=== PATIENT | male | born 1975 ===

== ENCOUNTER 2017-03-31 11:37 | Observation (INO) | payer MEDICAID ==
[2017-03-31 11:38] VITALS: BMI 16.6
[2017-03-31 13:26] LABS: BASO # 0.1 K/uL (0.0-0.2); BASO % 0.7 % (0.0-2.0); EOS % 0.3 % (0.0-4.0); HEMOGLOBIN 15.9 g/dL (12.0-18.0); LYMPH # 2.5 K/uL (1.0-4.3); LYMPH % 32.2 % (20.0-40.0); MEAN CELL VOLUME 81.7 fl (80.0-94.0); MEAN CORPUSCULAR HEMOGLOBIN 25.5 pg (27.0-31.0); MEAN CORPUSCULAR HGB CONC 31.2 g/dL (33.0-37.0); MEAN PLATELET VOLUME 11.7 fl (7.2-11.7); MONO # 0.3 K/uL (0.0-0.8); MONO % 3.4 % (0.0-10.0); NEUT # 4.9 K/uL (1.8-7.0); NEUT % 63.4 % (50.0-75.0); NRBC % 0.1 % (0.0-0.0); RBC 6.25 Mil/uL (4.40-5.90); WHITE BLOOD COUNT 7.8 K/uL (4.8-10.8)
--- NOTE | 2017-03-31 13:30 | RAD ---
HISTORY: fever COMPARISON: No prior. TECHNIQUE: Chest PA and lateral FINDINGS: Limited evaluation LUNGS: No active pulmonary disease. PLEURA: No significant pleural effusion identified. No pneumothorax apparent. CARDIOVASCULAR: Normal. OSSEOUS STRUCTURES: Demonstrate thoracic kyphosis thoracic cage deformity. Scoliosis. No obvious fracture. VISUALIZED UPPER ABDOMEN: Normal. OTHER FINDINGS: None. IMPRESSION: No active disease.
[2017-03-31] MEDS: Sodium Chloride 0.9% 1,000 ML IV SCH ×2 (13:31→18:44)
[2017-03-31 14:04] LABS: ALB/GLOB RATIO 1.3 (1.0-2.1); ALBUMIN 4.6 g/dL (3.5-5.0); ALT/SGPT 44 U/L (21-72); AST/SGOT 39 U/L (17-59); BLOOD UREA NITROGEN 43 mg/dl (9-20); CALCIUM 9.7 mg/dL (8.4-10.2); GFR AFRICAN-AMERICAN > 60; GFR NON-AFRICAN AMERICAN 55
--- NOTE | 2017-03-31 14:12 | ED PDOC ---
HPI: General Adult Time Seen by Provider: 03/31/17 12:04 Chief Complaint (Nursing): Dental Pain Chief Complaint (Provider): Fever History Per: Patient History/Exam Limitations: no limitations Onset/Duration Of Symptoms: Days (x 2) Additional History Per: Family (mother) Additional Complaint(s): Patient with cerebral palsy brought in by mother for fever for the past 2 days. Mother is primary hypercil core transformer assembler and gave him antipyretics with no relief. She also thinks his mouth is dry and is concerned about mouth sores. Otherwise: (-) cough , (-) rash, (-) nausea, (-) vomiting, (-) diarrhea. PMD: None Provided Past Medical History Reviewed: Historical Data, Nursing Documentation, Vital Signs Vital Signs: Last Vital Signs Temp 98.6 F 03/31/17 13:31 Pulse 110 H 03/31/17 11:59 Resp BP 142/84 03/31/17 11:59 Pulse Ox 98 03/31/17 14:17 - Medical History Other PMH: cerebral palsy - Family History Family History: States: Unknown Family Hx - Immunization History Hx Tetanus Toxoid Vaccination: No Hx Influenza Vaccination: No Hx Pneumococcal Vaccination: No - Home Medications Home Medications: Ambulatory Orders Medication Instructions Recorded hydrOXYzine Pamoate [Vistaril] 50 mg PO QN 02/01/16 - Allergies Allergies/Adverse Reactions: Allergies Allergy/AdvReac Type Severity Reaction Status Date / Time No Known Allergies Allergy Verified 02/01/16 22:48 Review of Systems ROS Statement: Except As Marked, All Systems Reviewed And Found Negative Constitutional: Positive for: Fever ENT: Positive for: Other (dry mouth) Respiratory: Negative for: Cough Gastrointestinal: Negative for: Nausea, Vomiting, Diarrhea Skin: Negative for: Rash Physical Exam - Reviewed Nursing Documentation Reviewed: Yes Vital Signs Reviewed: Yes - Physical Exam Comments: GENERAL APPEARANCE: Patient is awake, alert, in no acute distress. Patient is nonverbal SKIN: Warm, dry; (-) cyanosis, (-) rash. (-) Decubitus Ulcer EYES: (-) conjunctival pallor, (-) scleral icterus, (-) conjunctival hemorrhage. ENMT: Mucous membranes dry. TMs: (-) erythema. Airway patent: (-) stridor. Pharynx: (-) erythema, (-) exudate. NECK: (-) tenderness, (-) stiffness, (-) meningismus, (-) lymphadenopathy. CHEST AND RESPIRATORY: (-) accessory muscle use. Lungs: (-) rales, (-) rhonchi, (-) wheezes, (-) rub; breath sounds equal bilaterally. HEART AND CARDIOVASCULAR: (-) irregularity; (-) murmur, (-) gallop, (-) rub. ABDOMEN AND GI: Soft; (-) tenderness, (-) guarding; (-) organomegaly; (-) mass ; (-) CVA tenderness. EXTREMITIES: (-) deformity; (-) cellulitis, (-) lymphangitis; (-) subungual hemorrhage; (-) edema. NEURO AND PSYCH: Mental status as above; (-) focal findings. - Laboratory Results Result Diagrams: 03/31/17 13:15 03/31/17 13:15 - ECG O2 Sat by Pulse Oximetry: 98 (RA) Pulse Ox Interpretation: Normal Medical Decision Making Medical Decision Making: Time: 12:45 --CMP --CBC --Chest XR --IV Fluids - NS --Flu Swab Reevaluation: --Mother refusing urinalysis, urine bag to be applied, or urinary catheterization. She was informed benefits of tests for UTI because patient has fever with unknown source. She understands the benefits and risks and is still refusing. CXR : NAD, as read by MARIBELL Hollins flu : (-) Labs reviewed : NA is 170. Pickling Drum Operator notified of diagnosis of hypernatremia, likely due to dehydration ( hypovolemic hyponatremia), NS bolus d/c. ER MD notified. Case d/w hospitalist Dr. Vilchis, agrees with disposition, request Dr. Martinez be called for consult. Dr. Archer called and case discussed, she recommends to d/c NS and to give D5 water 50cc/hr and to repeat BMP q12h. Pickling Drum Operator states she fully agrees with and understands further plan and care. I have given the hypercil core transformer assembler opportunity to ask any additional questions. Scribe Attestation: Documented by Florencio Cortez, acting as a scribe for Zenaida Tesfaye PA-C Provider Scribe Attestation: All medical record entries made by the Scribe were at my direction and personally dictated by me. I have reviewed the chart and agree that the record accurately reflects my personal performance of the history, physical exam, medical decision making, and the department course for this patient. I have also personally directed, reviewed, and agree with the discharge instructions and disposition. Disposition - Clinical Impression Clinical Impression: Hypernatremia - Patient ED Disposition Is Patient to be Admitted: Yes Counseled Patient/Family Regarding: Studies Performed, Diagnosis - Disposition Disposition Time: 15:30 Condition: FAIR - PA / COST COORDINATOR / Resident Statement MD/DO has reviewed & agrees with the documentation as recorded.
[2017-03-31] MEDS ORDERED: Sodium Chloride 0.45% 500ml 1,000 ML IV SCH (15:45)
--- NOTE | 2017-03-31 17:32 | CP.PCM.HP ---
History of Present Illness - History of Present Illness History of Present Illness: This is a 42 year old male with a past medical history of cerebral palsy, with no other reported medical problems, who was brought in by his mother due to fever for the past 2 days. She states that she has been giving him antipyretics without relief. Denies any nausea, vomiting, diarrhea. In the ED, he was noted to be afebrile. However, upon obtaining labwork, he was noted to have a significant hypernatremia of 170 and hyperchloremia of 127. Also elevated BUN of 43 and creatinine of 1.4. Upon further investiagation the mother reports very poor po intake. He refuses to eat anything but oatmeal and rice pudding. Given his significant electrolyte abnormalities, the patient is to be placed on observation for fluid resuscitation. Dr. Archer, nephrology, was called and recommends D5W at 50 cc/hour which was initialized and will be continued overnight. Patient unable to provide hx due to cerebral palsy and mental retardation. Present on Admission - Present on Admission Any Indicators Present on Admission: No Review of Systems - Review of Systems Review of Systems: a 12 point ROS was conducted with the mother and found to be negative other than what was stated in the HPI Past Patient History - Infectious Disease Hx of Infectious Diseases: None - Past Medical History & Family History Past Medical History?: Yes - Past Social History Smoking Status: Never Smoked Alcohol: None Drugs: Denies Home Situation {Lives}: With Family - NEUROLOGICAL Other/Comment: cerebral palsy - PSYCHIATRIC Hx Substance Use: No - SURGICAL HISTORY Hx Surgeries: No - ANESTHESIA Hx Anesthesia: No Meds Allergies/Adverse Reactions: Allergies Allergy/AdvReac Type Severity Reaction Status Date / Time No Known Allergies Allergy Verified 02/01/16 22:48 Physical Exam - Additional Findings Additional findings: Physical exam: Constitutional- awake, alert, nonverbal, mental retardation, cachectic male Head- NCAT, PERRL Eye- PERRL, EOMI ENT- normal exam, MMM. Neck- normal inspection, supple, no JVD Respiratory- CTAB, no wheezes rales rhonchi Cardiovascular- RRR, +S1, +S2 no MRG GI/Abdominal- normal bowel sounds, soft, no mass, no hsm Skin- warm, dry Extremities Exam- normal capillary refill, normal inspection Neurological Exam- alert, awake, not oriented. Moving all 4 extremities Psych- unable to assess. Results - Vital Signs Recent Vital Signs: Last Vital Signs Temp 98.6 F 03/31/17 13:31 Pulse 110 H 03/31/17 11:59 Resp BP 142/84 03/31/17 11:59 Pulse Ox 98 03/31/17 16:34 - Labs Result Diagrams: 03/31/17 13:15 03/31/17 13:15 Labs: Laboratory Results - last 24 hr 03/31/17 03/31/17 03/31/17 13:15 13:15 13:15 WBC 7.8 RBC 6.25 H Hgb 15.9 Hct 51.0 MCV 81.7 MCH 25.5 L MCHC 31.2 L RDW 16.0 H Plt Count 136 MPV 11.7 Neut % (Auto) 63.4 Lymph % (Auto) 32.2 [place] % (Auto) 3.4 Eos % (Auto) 0.3 Baso % (Auto) 0.7 Neut # (Auto) 4.9 Lymph # (Auto) 2.5 [place] # (Auto) 0.3 Eos # (Auto) 0.0 Baso # (Auto) 0.1 Sodium 170 H* Potassium 3.9 Chloride 127 H Carbon Dioxide 28 Anion Gap 19 BUN 43 H Creatinine 1.4 Est GFR ( Amer) > 60 Est GFR (Non-Af Amer) 55 Random Glucose 112 H Calcium 9.7 Total Bilirubin 0.6 AST 39 ALT 44 Alkaline Phosphatase 53 Total Protein 8.3 H Albumin 4.6 Globulin 3.7 Albumin/Globulin Ratio 1.3 Influenza Typ A,B (EIA) Negative for flu a/b Assessment & Plan - Assessment and Plan (Free Text) Plan: ASSESSMENT/PLAN 1) hypernatremia of 170, hyperchloremia of 127, due to significant dehydration from poor po intake - Observation on telemetry - Nephrology consultation with Dr. Gianin haley - Continue D5W at 50 cc/hour for correction overnight - BMP q 12 hours - F/u serum, urine osmolality 2) Cerebral palsy - Fall precautions - Dietary consult due to poor po intake 3) DVT prophylaxis Heparin sq q 12h
[2017-04-01 03:28] VITALS: RESP 17
[2017-04-01 06:45] VITALS: BP 129/81; PULSE 71; TEMP 98.3; O2SAT 96
--- NOTE | 2017-04-01 12:28 | CP.PCM.PN ---
Subjective - Date & Time of Evaluation Date of Evaluation: 04/01/17 Time of Evaluation: 06:15 - Subjective Subjective: AMA: The Patient's mother and brother decided to sign out the patient against medical advice.The risks were explained to the mother in Finnish but she still signed him out. She said that she would call his PMD later in the morning for further advice.. Miguel Anna MD Objective - Vital Signs/Intake and Output Vital Signs (last 24 hours): Temp Pulse Resp BP Pulse Ox 98.3 F 71 17 129/81 96 04/01/17 06:44 04/01/17 06:44 04/01/17 06:44 04/01/17 06:44 04/01/17 06:44 - Labs Labs: 03/31/17 13:15 03/31/17 13:15
== END 2017-04-01 07:00 | disposition left against medical advice (07) ==
LOC: H.ER 11:37 → H.ERHOLD 15:42 → UNDODISOB 04-01 07:00
PROVIDERS: ADMIT Internal Medicine; ATTEND Internal Medicine
DX: E86.0 Dehydration (principal); E87.0 Hyperosmolality and hypernatremia; E87.8 Other disorders of electrolyte and fluid balance, not elsewhere classified; F79 Unspecified intellectual disabilities; G80.9 Cerebral palsy, unspecified; K08.89 Other specified disorders of teeth and supporting structures
CPT/HCPCS: 71046; 80053; 83930; 85025; 87804; 96372; 99284; G0378; J1644; J7040; J7070

== ENCOUNTER 2017-04-03 15:52 | Inpatient (IN) | payer MEDICAID ==
[2017-04-03 15:52] VITALS: BMI 16.6
[2017-04-03] MEDS ORDERED: Acetaminophen 160 mg/5 ml UD PO ONE (16:35)
--- NOTE | 2017-04-03 16:38 | ED PDOC ---
HPI: CCC, URI, Sore Throat Time Seen by Provider: 04/03/17 16:26 Chief Complaint (Nursing): Cough, Cold, Congestion History Per: Family (Fever cough and congestion since thios AM. No vomiting or diarrhea. Pt has CP hx obtained from mother) Past Medical History Vital Signs: Last Vital Signs Temp 102.8 F H 04/03/17 16:25 Pulse 84 04/03/17 16:25 Resp 16 04/03/17 16:25 BP 112/65 04/03/17 16:25 Pulse Ox 95 04/03/17 18:25 - Medical History Other PMH: Cerebral Palsy - Family History Family History: States: Unknown Family Hx - Immunization History Hx Tetanus Toxoid Vaccination: No Hx Influenza Vaccination: No Hx Pneumococcal Vaccination: No - Home Medications Home Medications: Ambulatory Orders Medication Instructions Recorded No Known Home Med 04/03/17 - Allergies Allergies/Adverse Reactions: Allergies Allergy/AdvReac Type Severity Reaction Status Date / Time No Known Allergies Allergy Verified 04/03/17 16:09 Review of Systems ROS Statement: Except As Marked, All Systems Reviewed And Found Negative Constitutional: Positive for: Fever ENT: Positive for: Nose Congestion Respiratory: Positive for: Cough Physical Exam - Reviewed Nursing Documentation Reviewed: Yes Vital Signs Reviewed: Yes - Physical Exam Appears: Positive for: Non-toxic, No Acute Distress Head Exam: Positive for: ATRAUMATIC, NORMAL INSPECTION, NORMOCEPHALIC Skin: Positive for: Normal Color, Warm, DRY Eye Exam: Positive for: EOMI, Normal appearance, PERRL ENT: Positive for: Normal ENT Inspection Neck: Positive for: Normal, Painless ROM Cardiovascular/Chest: Positive for: Regular Rate, Rhythm Respiratory: Positive for: Rhonchi. Negative for: Wheezing, Respiratory Distress Gastrointestinal/Abdominal: Positive for: Normal Exam, Bowel Sounds, Soft Back: Positive for: Normal Inspection Extremity: Positive for: Normal ROM Neurologic/Psych: Positive for: Motor/Sensory Deficits (Contractures upper and lower ext. Alerteness at baseline as per mother) - Laboratory Results Result Diagrams: 04/03/17 17:00 04/03/17 17:00 - ECG O2 Sat by Pulse Oximetry: 95 Disposition - Clinical Impression Clinical Impression: Hypernatremia, Influenza - Patient ED Disposition Is Patient to be Admitted: Yes - Disposition Disposition Time: 18:27 Condition: FAIR Forms: Shustir ([place] Ver[place])
[2017-04-03] MEDS ORDERED: Acetaminophen 160 mg/5 ml UD ONE (17:02)
[2017-04-03 17:29] LABS: VENOUS BLOOD GAS BASE EXCESS 4.1 mmol/L (0.0-2.0); VENOUS BLOOD GAS PCO2 41 mmHg (40-60); VENOUS BLOOD GAS PO2 37 mm/Hg (30-55); VENOUS BLOOD PH 7.45 (7.32-7.43)
[2017-04-03 17:35] LABS: BASO % 0.4 % (0.0-2.0); HEMOGLOBIN 14.4 g/dL (12.0-18.0); LYMPH % 21.5 % (20.0-40.0); MEAN CELL VOLUME 81.7 fl (80.0-94.0); MEAN CORPUSCULAR HEMOGLOBIN 25.2 pg (27.0-31.0); MEAN CORPUSCULAR HGB CONC 30.8 g/dL (33.0-37.0); MEAN PLATELET VOLUME 12.1 fl (7.2-11.7); MONO # 0.3 K/uL (0.0-0.8); MONO % 5.3 % (0.0-10.0); NEUT # 3.5 K/uL (1.8-7.0); NEUT % 72.8 % (50.0-75.0); NRBC % 0.9 % (0.0-0.0); RBC 5.72 Mil/uL (4.40-5.90); RED CELL DISTRIBUTION WIDTH 15.6 % (11.5-14.5); WHITE BLOOD COUNT 4.8 K/uL (4.8-10.8)
[2017-04-03 18:05] LABS: ALB/GLOB RATIO 1.2 (1.0-2.1); ALBUMIN 4.2 g/dL (3.5-5.0); ALT/SGPT 36 U/L (21-72); AST/SGOT 63 U/L (17-59); BLOOD UREA NITROGEN 27 mg/dl (9-20); CALCIUM 9.1 mg/dL (8.4-10.2); GFR AFRICAN-AMERICAN > 60; GFR NON-AFRICAN AMERICAN > 60
[2017-04-03] MEDS ORDERED: Oseltamivir 6 MG/ML PO STA (18:31)
--- NOTE | 2017-04-03 19:54 | CP.PCM.HP ---
History of Present Illness - History of Present Illness History of Present Illness: 42 yo mentally retarded, bed ridden and non-conversant since brought by mother because of fever of 3 days duration. He was found to be hypernatremic and was admitted. He was vigorously hydrated but when they could not get a bed upstairs, mother signed him out AMA. Today he was brought back because of the persistent fever and coughing. Present on Admission - Present on Admission Any Indicators Present on Admission: No History of DVT/PE: No History of Uncontrolled Diabetes: No Urinary Catheter: No Decubitus Ulcer Present: No Review of Systems - Review of Systems Systems not reviewed;Unavailable: Other (unable to converse because of severe mental retardation) Past Patient History - Infectious Disease Hx of Infectious Diseases: None - Past Medical History & Family History Past Medical History?: Yes - Past Social History Smoking Status: Never Smoked Home Situation {Lives}: With Family - NEUROLOGICAL Other/Comment: cerebral palsy - PSYCHIATRIC Hx Substance Use: No - SURGICAL HISTORY Hx Surgeries: No - ANESTHESIA Hx Anesthesia: No Meds Allergies/Adverse Reactions: Allergies Allergy/AdvReac Type Severity Reaction Status Date / Time No Known Allergies Allergy Verified 04/03/17 16:09 Physical Exam - Constitutional Appears: No Acute Distress, Cachectic, Chronically Ill - Head Exam Head Exam: ATRAUMATIC - Eye Exam Eye Exam: absent: Scleral icterus - ENT Exam ENT Exam: Mucous Membranes Dry - Respiratory Exam Respiratory Exam: absent: Rhonchi, Wheezes, Respiratory Distress - Cardiovascular Exam Cardiovascular Exam: REGULAR RHYTHM, +S1, +S2 - GI/Abdominal Exam GI & Abdominal Exam: Soft. absent: Tenderness - Rectal Exam Rectal Exam: Deferred - Psychiatric Exam Psychiatric exam: Flat Affect - Skin Skin Exam: Dry, Intact Results - Vital Signs Recent Vital Signs: Last Vital Signs Temp 101.1 F H 04/03/17 18:39 Pulse 84 04/03/17 16:25 Resp 16 04/03/17 16:25 BP 112/65 04/03/17 16:25 Pulse Ox 95 04/03/17 18:29 - Labs Result Diagrams: 04/03/17 17:00 04/03/17 17:00 Labs: Laboratory Results - last 24 hr 04/03/17 04/03/17 04/03/17 16:34 17:00 17:00 WBC 4.8 RBC 5.72 Hgb 14.4 Hct 46.7 MCV 81.7 MCH 25.2 L MCHC 30.8 L RDW 15.6 H Plt Count 101 L D MPV 12.1 H Neut % (Auto) 72.8 Lymph % (Auto) 21.5 [place] % (Auto) 5.3 Eos % (Auto) 0.0 Baso % (Auto) 0.4 Neut # (Auto) 3.5 Lymph # (Auto) 1.0 [place] # (Auto) 0.3 Eos # (Auto) 0.0 Baso # (Auto) 0.0 pO2 37 VBG pH 7.45 H VBG pCO2 41 VBG HCO3 27.5 VBG Total CO2 29.8 H VBG O2 Sat (Calc) 80.1 H VBG Base Excess 4.1 H VBG Potassium 3.3 L A-a O2 Difference 61.0 Sodium 156.0 H 159 H Chloride 120.0 H 119 H Glucose 123 H Lactate 2.7 H FiO2 21.0 Crit Value Called To Celso gardner Crit Value Called By 15 Crit Value Read Back Y Blood Gas Notified Time 1728 Potassium 4.6 Carbon Dioxide 26 Anion Gap 19 BUN 27 H Creatinine 1.3 Est GFR ( Amer) > 60 Est GFR (Non-Af Amer) > 60 Random Glucose 130 H Calcium 9.1 Total Bilirubin 0.8 AST 63 H D ALT 36 Alkaline Phosphatase 53 Total Protein 7.8 Albumin 4.2 Globulin 3.6 Albumin/Globulin Ratio 1.2 Venous Blood Potassium 3.3 L Influenza Typ A,B (EIA) 04/03/17 17:00 WBC RBC Hgb Hct MCV MCH MCHC RDW Plt Count MPV Neut % (Auto) Lymph % (Auto) [place] % (Auto) Eos % (Auto) Baso % (Auto) Neut # (Auto) Lymph # (Auto) [place] # (Auto) Eos # (Auto) Baso # (Auto) pO2 VBG pH VBG pCO2 VBG HCO3 VBG Total CO2 VBG O2 Sat (Calc) VBG Base Excess VBG Potassium A-a O2 Difference Sodium Chloride Glucose Lactate FiO2 Crit Value Called To Crit Value Called By Crit Value Read Back Blood Gas Notified Time Potassium Carbon Dioxide Anion Gap BUN Creatinine Est GFR ( Amer) Est GFR (Non-Af Amer) Random Glucose Calcium Total Bilirubin AST ALT Alkaline Phosphatase Total Protein Albumin Globulin Albumin/Globulin Ratio Venous Blood Potassium Influenza Typ A,B (EIA) Pos for influenza a H Assessment & Plan (1) Hypernatremia Status: Acute Comment: continue IV hydration with D5W. repeat bmp in am (2) Influenza Status: Acute Comment: continue Tamiflu (3) Mental retardation Status: Acute
[2017-04-03] MEDS ORDERED: Acetaminophen 325 MG/10.15 ML NG PRN (20:00)
[2017-04-04 05:52] LABS: BASO % 0.4 % (0.0-2.0); HEMOGLOBIN 12.8 g/dL (12.0-18.0); LYMPH # 1.5 K/uL (1.0-4.3); MEAN CELL VOLUME 81.3 fl (80.0-94.0); MEAN CORPUSCULAR HEMOGLOBIN 25.1 pg (27.0-31.0); MEAN CORPUSCULAR HGB CONC 30.8 g/dL (33.0-37.0); MEAN PLATELET VOLUME 12.7 fl (7.2-11.7); MONO # 0.3 K/uL (0.0-0.8); NEUT # 5.2 K/uL (1.8-7.0); NEUT % 73.6 % (50.0-75.0); NRBC % 0.1 % (0.0-0.0); RBC 5.1 Mil/uL (4.40-5.90); RED CELL DISTRIBUTION WIDTH 15.9 % (11.5-14.5)
[2017-04-04 07:31] LABS: BLOOD UREA NITROGEN 32 mg/dl (9-20); CALCIUM 8.4 mg/dL (8.4-10.2); GFR AFRICAN-AMERICAN > 60; GFR NON-AFRICAN AMERICAN > 60
[2017-04-04] MEDS: Oseltamivir 6 MG/ML PO SCH (08:24)
--- NOTE | 2017-04-04 09:57 | PQF GENQUE ---
Dr. Kaur, 1. In agreement with BMI:8.3 as listed in the EMR? 2. If in agreement with the BMI: is there an associated nutritional diagnosis to go along with the BMI? OR; Disagree OR:Other explanation of clinical finding OR: Unable to determine EMR lists:BMI 8.3 5ft 5in 50lb Nursing Admission Assessment: Malnutrition Screening: Have you lost weight in last 6 months without trying: Yes-Unsure of Amount; Have you been eating poorly due to decreased appetite or swallowing/ chewing difficulty: Yes; Malnutrition Score 3 H and P:mentally retarded, bed ridden and non-conversant since brought by mother because of fever of 3 days duration. He was found to be hypernatremic and was admitted. He was vigorously hydrated but when they could not get a bed upstairs, mother signed him out AMA. Today he was brought back because of the persistent fever and coughing. Influenza Typ A,B (EIA) Pos for influenza a Assess : (1) Hypernatremia Status: Acute Comment: continue IV hydration with D5W. repeat bmp in am (2) Influenza Status: Acute Comment: continue Tamiflu (3) Mental retardation Status: Acute Dietican Referral:report pending This form is a permanent part of the medical record Clarification of your documentation is requested to better reflect the severity of illness and intensity of treatment of your patient. Indicators present [] Specify: [] [] Specify: [] [] Specify: [] [] Specify: [] Location in the medical record that reflects the above clinical findings: [] Treatment Provided: [] PHYSICIAN'S RESPONSE cachexia BMI 8 Based on your medical judgment of the clinical indicators outlined above please clarify the following: [] Practitioner response [] If unable to determine, please check the box, sign and date. Present On Admission (POA) Indicator: [] Present at the time of admission [] Not present at the time of admission [] Clinically Undetermined In responding to this query, please exercise your independent professional judgment. The fact that a question is asked does not imply that any particular answer is desired or expected. Thank you for your clarification on this documentation. If you have any questions please call. * Thank you, Maria Luisa Jurado RN ext. #[phone] MTDD
--- NOTE | 2017-04-04 10:32 | CP.PCM.PN ---
Subjective - Date & Time of Evaluation Date of Evaluation: 04/04/17 Time of Evaluation: 09:30 - Subjective Subjective: 42 y/o M evaluated and examined by bedside. 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 Mother at bedside consoling him, mother reports pt has improved a little since yesterday, last vomiting was yesterday morning, pt is now eating more bits of food (oatmeal and rice pudding). Mother reports pt is returning to his baseline slowly. - Fever of 102.8 and 101.1 yesterday afternoon; Afebrile overnight. - Mother takes care of pt every day, she states she never needed and does NOT need any in home tutor for patient care. Mother re-states that herself and her whole family love the pt, play with the pt and feels happy taking care of pt. No in home tutor is requested. - When interrogated about end of life support, mother has never had this discussion with PMD. Objective - Vital Signs/Intake and Output Vital Signs (last 24 hours): Temp Pulse Resp BP Pulse Ox 98.3 F 98 H 20 97/71 L 97 04/04/17 05:00 04/04/17 05:00 04/04/17 05:00 04/04/17 05:00 04/04/17 05:00 - Medications Medications: Current Medications Acetaminophen (Tylenol 325mg/10.15ml Ud) 325 mg NG Q6 PRN PRN Reason: Fever >100.4 F Dextrose (Dextrose 5% In Water 1000 Ml) 1,000 mls @ 100 mls/hr IV .Q10H [facility] Last Admin: 04/04/17 08:26 Dose: 100 mls/hr Oseltamivir Phosphate (Tamiflu Susp) 30 mg PO DAILY SARAH BETH PRN Reason: Protocol Last Admin: 04/04/17 08:24 Dose: 30 mg - Labs Labs: 04/04/17 05:01 04/04/17 05:01 - Head Exam Head Exam: ATRAUMATIC, NORMAL INSPECTION - Eye Exam Eye Exam: Normal appearance - ENT Exam ENT Exam: Mucous Membranes Dry Additional comments: Protruding tongue. - Neck Exam Neck Exam: Full ROM - Respiratory Exam Respiratory Exam: absent: Rhonchi, Wheezes, Respiratory Distress - Cardiovascular Exam Cardiovascular Exam: REGULAR RHYTHM, +S1, +S2 - GI/Abdominal Exam GI & Abdominal Exam: Soft, Normal Bowel Sounds. absent: Tenderness - Neurological Exam Neurological Exam: Awake (pacify with mother's voice. ) Assessment and Plan - Assessment and Plan (Free Text) Assessment: 42 y/o M with a PMHx of cerebral palsy admitted for evaluation and management of hypernatremia and influenza A. Plan: 1. Hypernatremia - Hypernatremia is most probably to poor PO intake and dehydration. - continue IV hydration with D5W. - Na trending down. On 03/31/17: Na 170-elevated; On 04/03/17: Na 159-elevated; today 04/04/17: Na 152-elevated. - F/u Blood Cx and MRSA screen. - May need Central IV line access if failure to provide IV hydration by peripheral IV access. 2. Influenza Type A - Continue Tamiflu - Acetaminophen PRN 3. Mental retardation - Hx of Cerebral Palsy.
--- NOTE | 2017-04-04 11:07 | RAD ---
HISTORY: cough COMPARISON: GoNo prior. FINDINGS: LUNGS: No active pulmonary disease. PLEURA: No significant pleural effusion identified, no pneumothorax apparent. CARDIOVASCULAR: Normal. OSSEOUS STRUCTURES: Severe thoracolumbar kyphoscoliosis. VISUALIZED UPPER ABDOMEN: Distended bowel gas pattern. OTHER FINDINGS: None. IMPRESSION: No active disease.
[2017-04-04] MEDS ORDERED: Lidocaine 1% Inj (20ml) ONE (15:28)
--- NOTE | 2017-04-04 15:57 | PCM.SURG1 ---
Surgeon's Initial Post Op Note - Surgeon's Notes Surgeon: Conner Chavez MD Metal Weather Stripper: NONE Type of Anesthesia: Local Pre-Operative Diagnosis: Poor venous access Operative Findings: Pt is mentally and physically challenged. Unable to place a picc. Post-Operative Diagnosis: Poor venous access Operation Performed: Midline dual lumen catheter placed, 20 cm. Specimen/Specimens Removed: NONE Estimated Blood Loss: EBL {In ML}: 3 Blood Products Given: N/A Drains Used: No Drains Post-Op Condition: Poor Date of Surgery/Procedure: 04/04/17 Time of Surgery/Procedure: 15:55
[2017-04-04] MEDS ORDERED: Potassium CL 10 MEQ/50 ML 50 ML IVPB ONE (17:55)
[2017-04-05 07:38] LABS: CALCIUM 6.7 mg/dL (8.4-10.2)
[2017-04-05] MEDS ORDERED: Sodium Chloride 0.9% 1,000 ML IV SCH ×2 (07:45→21:03)
--- NOTE | 2017-04-05 08:17 | CP.PCM.PN ---
<Jayde Kaur - Last Filed: 04/05/17 08:17> Objective - Vital Signs/Intake and Output Vital Signs (last 24 hours): Temp Pulse Resp BP Pulse Ox 99.1 F 123 H 20 126/76 96 04/05/17 05:00 04/05/17 05:00 04/05/17 01:00 04/05/17 05:00 04/05/17 05:00 Intake and Output: 04/05/17 04/05/17 06:59 18:59 Intake Total 1250 Balance 1250 - Medications Medications: Current Medications Acetaminophen (Tylenol 325mg/10.15ml Ud) 325 mg NG Q6 PRN PRN Reason: Fever >100.4 F Acetaminophen (Tylenol 650 Mg Supp) 650 mg FL Q6 PRN PRN Reason: Fever >100.4 F Last Admin: 04/04/17 16:30 Dose: 650 mg Sodium Chloride (Sodium Chloride 0.9%) 1,000 mls @ 100 mls/hr IV .Q10H SARAH BETH Stop: 04/06/17 07:41 Oseltamivir Phosphate (Tamiflu Susp) 30 mg PO DAILY SARAH BETH PRN Reason: Protocol Last Admin: 04/04/17 08:24 Dose: 30 mg - Labs Labs: 04/04/17 05:01 04/05/17 06:28 <Michael Trimble - Last Filed: 04/05/17 10:51> Subjective - Date & Time of Evaluation Date of Evaluation: 04/05/17 Time of Evaluation: 08:45 - Subjective Subjective: 42 y/o M evaluated and examined by bedside. Pt is non-verbal, in contracture posture. Mother reports pt has returned to hi baseline. Pt is drinking and eating as usual. Mother reports pt usually eats and drinks very frequently in small quantities. Mother is NOT open to the idea of day care home mother. - Mother was inquired about dark secretion from mouth, sh explains that doctors have tested the secretion and NO blood was reported. Objective - Vital Signs/Intake and Output Vital Signs (last 24 hours): Temp Pulse Resp BP Pulse Ox 99.2 F 101 H 48 H 133/88 99 04/05/17 08:00 04/05/17 08:00 04/05/17 08:00 04/05/17 08:00 04/05/17 08:00 Intake and Output: 04/05/17 04/05/17 06:59 18:59 Intake Total 1250 600 Balance 1250 600 - Medications Medications: Current Medications Acetaminophen (Tylenol 325mg/10.15ml Ud) 325 mg NG Q6 PRN PRN Reason: Fever >100.4 F Acetaminophen (Tylenol 650 Mg Supp) 650 mg FL Q6 PRN PRN Reason: Fever >100.4 F Last Admin: 04/04/17 16:30 Dose: 650 mg Sodium Chloride (Sodium Chloride 0.9%) 1,000 mls @ 100 mls/hr IV .Q10H SARAH BETH Stop: 04/06/17 07:41 Last Admin: 04/05/17 09:21 Dose: 100 mls/hr Oseltamivir Phosphate (Tamiflu Susp) 30 mg PO DAILY SARAH BETH PRN Reason: Protocol Last Admin: 04/05/17 09:54 Dose: 30 mg - Labs Labs: 04/05/17 06:28 04/05/17 06:28 - Constitutional Appears: Well, No Acute Distress, Cachectic - ENT Exam ENT Exam: Mucous Membranes Moist Additional comments: Protruding tongue and aome minor drooling. - Respiratory Exam Respiratory Exam: NORMAL BREATHING PATTERN. absent: Rhonchi, Wheezes - Cardiovascular Exam Cardiovascular Exam: +S1, +S2 - GI/Abdominal Exam GI & Abdominal Exam: Soft. absent: Tenderness Assessment and Plan - Assessment and Plan (Free Text) Assessment: 42 y/o M with a PMHx of cerebral palsy admitted for evaluation and management of hypernatremia and influenza A. Plan: 1. Hypernatremia - Hypernatremia is most probably to poor PO intake and dehydration. - continue IV hydration with D5W. - Na trending down. On 03/31/17: Na 170-elevated; On 04/03/17: Na 159-elevated; today 04/04/17: Na 152-elevated. - Blood Cx showed NO growth in 24 hours. - F/U MRSA screen. - Middline IV access acquired yesterday. 2. Influenza Type A - Continue Tamiflu - Acetaminophen PRN 3. Mental retardation - Hx of Cerebral Palsy. 4. Thrombocytopenia - Possibly due to Heparin induced, secondary to poor nutrition and/or hemodilution. - Monitor CBC.
[2017-04-05 09:38] LABS: HEMOGLOBIN 10.2 g/dL (12.0-18.0); MEAN CELL VOLUME 80.5 fl (80.0-94.0); MEAN CORPUSCULAR HEMOGLOBIN 25.1 pg (27.0-31.0); MEAN CORPUSCULAR HGB CONC 31.2 g/dL (33.0-37.0); RBC 4.05 Mil/uL (4.40-5.90); RED CELL DISTRIBUTION WIDTH 15.5 % (11.5-14.5); WHITE BLOOD COUNT 2.1 K/uL (4.8-10.8)
[2017-04-05] MEDS: Oseltamivir 6 MG/ML PO SCH (09:54)
--- NOTE | 2017-04-05 12:11 | VASCULAR ---
PROCEDURE: Date of procedure: 04/04/2017 Procedure: 1. Placement of a right arm midline PICC with ultrasound 2. PICC tip confirmation with spot radiograph and is in the superior vena cava Medications: 3cc 1 percent lidocaine HISTORY: Poor venous access TECHNIQUE: Following informed consent and procedure time-out, the patient's right arm was prepped and draped in the usual sterile fashion. Ultrasound showed a patent and compressible right basilic. After the skin was anesthetized with 1 percent lidocaine, the basilic vein was accessed with ultrasound guidance. A guidewire was advanced into the basilic vein. A dual lumen PICC was trimmed to 20 centimeters advanced through the peel-away sheath. PICC was position within the proximal subclavian vein. . An image documenting ultrasound guidance for vascular access was permanently saved. cava. The PICC was secured to the patient's skin. The PICC was flushed. A biopatch and sterile dressing was applied. IMPRESSION: Patient is physically contracted which limits ability to position him for a PICC line placement. The dual-lumen midline PICC was placed, 20 centimeters in length via the right basilic vein.
[2017-04-05] MEDS ORDERED: Albuterol-Ipratrop 3 mg / 0.5 (3 ml) UD INH STA (13:37)
[2017-04-05 13:59] LABS: ABG ALLEN TEST YES; ARTERIAL BLOOD GAS HCO3 20.4 mmol/L (21-28); ARTERIAL BLOOD GAS HEMOGLOBIN 11.2 g/dL (11.7-17.4); ARTERIAL BLOOD GAS O2 CAPACITY 15.4 mL/dL (16-24); ARTERIAL BLOOD GAS O2 CONTENT 14.9 ML/dL (15-23); ARTERIAL BLOOD GAS PCO2 29 mm/Hg (35-45); ARTERIAL BLOOD GAS PO2 70 mm/Hg (80-100); ARTERIAL BLOOD GAS TCO2 18.9 mmol/L (22-28)
--- NOTE | 2017-04-05 14:00 | RAD ---
HISTORY: R/O aspiration pneumonia. COMPARISON: Chest radiograph dated 04/03/2017. FINDINGS: Patient contractions roots evaluation. There is a new right upper lobe opacity. The lungs are otherwise clear. The cardiomediastinal silhouette is within normal limits. The osseous structures are unchanged. A partially imaged catheter is noted in the right upper extremity with tip terminating in the axilla. IMPRESSION: New right upper lobe consolidation.
[2017-04-05] MEDS ORDERED: Albuterol-Ipratrop 3 mg / 0.5 (3 ml) UD INH PRN (14:26)
--- NOTE | 2017-04-05 15:28 | PCM.ANES ---
Anesthesia Emergent Intubation - Diagnosis Working Diagnosis:: Respiratory Distress, Pneumonia - Consult Reason for Consult:: Respiratory Distress, Pneumonia - Intubation Attempts Previous Number of Intubation Attempts:: 0 - Pre-Intubation Vital Signs Blood Pressure: 80/59 Heart Rate: 106 Respiratory Rate: 50 O2 Sat: 98 FIO2: 100 Oxygen Delivery Method: Ambu-Bag Level Of Consciousness: Awake, Restless, Unable to follow directions (Patient has history of MR) Intubation Meds Given: Etomidate - Airway Management Oropharyngeal Area Suctioned: Yes PreOxygenation: 100 Possible Aspiration: Yes (Mild aspiration of vomitus noted, ETT suctioned thoroughly ) - Method of Intubation Intubation Method: Oral ETT ETT Size: 7.5 Lipline@: 23 Easy: Yes Atramatic: Yes - Intubation Devices Grayling Scope Used: Yes (Blade size 4) - Placement Confirmation Breath Sounds Present & Equal Bilaterally: Yes Positive EtCO2: Yes Portable CXR: Yes Recommendations: Ventilator, T-Bar, Chest X Ray, ABG - Post-Intubation Vital Signs Blood Pressure: 99/59 Heart Rate: 100 Respiratory Rate: 14 O2 Sat: 100 FIO2: 100
[2017-04-05] MEDS ORDERED: Propofol 10 mg/ml 1,000 MG/100 ML VIAL IV SCH ×2 (15:30→21:03)
--- NOTE | 2017-04-05 15:53 | CP.PCM.CON ---
Past Patient History - Infectious Disease Hx of Infectious Diseases: None - Past Medical History & Family History Past Medical History?: Yes - Past Social History Smoking Status: Never Smoked - NEUROLOGICAL Other/Comment: cerebral palsy - MUSCULOSKELETAL/RHEUMATOLOGICAL Hx Falls: No - PSYCHIATRIC Hx Substance Use: No - SURGICAL HISTORY Hx Surgeries: No - ANESTHESIA Hx Anesthesia: No Meds Allergies/Adverse Reactions: Allergies Allergy/AdvReac Type Severity Reaction Status Date / Time No Known Allergies Allergy Verified 04/03/17 16:09 - Medications Medications: Current Medications Acetaminophen (Tylenol 650 Mg Supp) 650 mg MS Q6 PRN PRN Reason: Fever >100.4 F Last Admin: 04/05/17 13:13 Dose: 650 mg Albuterol/Ipratropium (Duoneb 3 Mg/0.5 Mg (3 Ml) Ud) 3 ml INH RQ4 SARAH BETH Dimethicone (Proshield Plus Skin Protectant) 1 applic TOP Q8 SARAH BETH Sodium Chloride (Sodium Chloride 0.9%) 1,000 mls @ 100 mls/hr IV .Q10H SARAH BETH Stop: 04/06/17 07:41 Last Admin: 04/05/17 09:21 Dose: 100 mls/hr Vancomycin HCl 1 gm/ Sodium (Chloride) 250 mls @ 166.667 mls/hr IVPB DAILY SARAH BETH PRN Reason: Protocol Piperacillin Sod/Tazobactam (Sod 2.25 gm/ Sodium Chloride) 100 mls @ 100 mls/ hr IVPB Q8 SARAH BETH PRN Reason: Protocol Propofol (Diprivan) 1,000 mg in 100 mls @ 0.68 mls/hr IV .Q24H SARAH BETH; 5 MCG/KG/ MIN PRN Reason: Protocol Stop: 04/06/17 15:21 Last Admin: 04/05/17 15:47 Dose: 5 mcg/kg/min, 0.68 mls/hr Oseltamivir Phosphate (Tamiflu Susp) 30 mg PO DAILY SARAH BETH PRN Reason: Protocol Pantoprazole Sodium (Protonix Inj) 40 mg IVP DAILY SARAH BETH Results - Vital Signs Recent Vital Signs: Last Vital Signs Temp 102.4 F H 04/05/17 13:00 Pulse 106 H 04/05/17 15:28 Resp 50 H 04/05/17 15:28 BP 80/59 L 04/05/17 15:28 Pulse Ox 98 02/09/18 15:28 - Labs Result Diagrams: 04/05/17 06:28 04/05/17 06:28 Labs: Laboratory Results - last 24 hr 04/05/17 04/05/17 04/05/17 06:28 06:28 08:47 WBC 2.1 L D RBC 4.05 L Hgb 10.2 L D Hct 32.6 L MCV 80.5 MCH 25.1 L MCHC 31.2 L RDW 15.5 H Plt Count 33 L D pCO2 pO2 HCO3 ABG pH ABG Total CO2 ABG O2 Saturation ABG O2 Content ABG Base Excess ABG Hemoglobin ABG Carboxyhemoglobin POC ABG HHb (Measured) ABG Methemoglobin ABG O2 Capacity Lino Test A-a O2 Difference Hgb O2 Saturation Vent Mode FiO2 Blood Gas Comments Crit Value Called To Crit Value Called By Crit Value Read Back Blood Gas Notified Time Sodium 129 L Potassium 3.7 Chloride 94 L Carbon Dioxide 23 Anion Gap 16 BUN 34 H Creatinine 2.1 H Est GFR ( Amer) 42 Est GFR (Non-Af Amer) 35 Random Glucose 353 H Calcium 6.7 L Albumin 2.6 L D 04/05/17 13:53 WBC RBC Hgb Hct MCV MCH MCHC RDW Plt Count pCO2 29 L pO2 70 L HCO3 20.4 L ABG pH 7.40 ABG Total CO2 18.9 L ABG O2 Saturation 97.0 ABG O2 Content 14.9 L ABG Base Excess -5.7 L ABG Hemoglobin 11.2 L ABG Carboxyhemoglobin 1.2 POC ABG HHb (Measured) 2.9 ABG Methemoglobin 1.4 ABG O2 Capacity 15.4 L Lino Test Yes A-a O2 Difference 607.0 Hgb O2 Saturation 94.5 L Vent Mode Nrm FiO2 100.0 Blood Gas Comments Nrm 100 Crit Value Called To Bailee randle r.n. Crit Value Called By Maria Luisa Crit Value Read Back Y Blood Gas Notified Time 1359 Sodium Potassium Chloride Carbon Dioxide Anion Gap BUN Creatinine Est GFR ( Amer) Est GFR (Non-Af Amer) Random Glucose Calcium Albumin
--- NOTE | 2017-04-05 15:54 | RAD ---
PROCEDURE: CHEST RADIOGRAPH, 1 VIEW HISTORY: post-endotracheal tube placement COMPARISON: Chest radiograph performed approximately 2.5 hours prior. FINDINGS: LUNGS: Right upper lobe opacity redemonstrated. PLEURA: No pneumothorax or pleural fluid seen. CARDIOVASCULAR: Cardiomediastinal silhouette within normal limits OSSEOUS STRUCTURES: Unchanged. VISUALIZED UPPER ABDOMEN: Normal. OTHER FINDINGS: New endotracheal tube with tip at the level of the clavicular heads. IMPRESSION: Interval placement of endotracheal tube in satisfactory position.
--- NOTE | 2017-04-05 16:28 | CP.PCM.PN ---
Subjective - Date & Time of Evaluation Date of Evaluation: 04/05/17 Time of Evaluation: 08:00 - Subjective Subjective: 42 y/o M evaluated and examined by bedside. Pt awake, non-verbal, moaning and in contracted posture. Mother reports pt is improving and returning to baseline. Pt is eating bits of oatmeal as given by mother. Pt afebrile overnight with NO acute events. Around 1:00 pm today, pt developed a fever, severe cough and tachypnea. Pt's O2 saturation decreased to 84%. As per mother, she was feeding pt oatmeal by mouth when suddenly pt choked and began to cough. -STAT chest X ray and ABG were ordered. O2 by mask and then Duoneb were initiated. -CXR showed a new RUL consolidation. -Most possibly aspiration pneumonia. -Pt was transferred to ICU again for critical care management. -Consent by the mother for possible intubation was obatined. -Anesthesiology was consulted and Intubation performed for respiratory stabilization. Pt tolerated well the procedure. Objective - Vital Signs/Intake and Output Vital Signs (last 24 hours): Temp Pulse Resp BP Pulse Ox 102.4 F H 106 H 50 H 80/59 L 98 04/05/17 15:05 04/05/17 15:28 04/05/17 15:28 04/05/17 15:28 04/05/17 15:28 Intake and Output: 04/05/17 04/05/17 06:59 18:59 Intake Total 1250 600 Balance 1250 600 - Medications Medications: Current Medications Acetaminophen (Tylenol 650 Mg Supp) 650 mg NM Q6 PRN PRN Reason: Fever >100.4 F Last Admin: 04/05/17 13:13 Dose: 650 mg Albuterol/Ipratropium (Duoneb 3 Mg/0.5 Mg (3 Ml) Ud) 3 ml INH RQ4 SARAH BETH Dimethicone (Proshield Plus Skin Protectant) 1 applic TOP Q8 SARAH BETH Sodium Chloride (Sodium Chloride 0.9%) 1,000 mls @ 100 mls/hr IV .Q10H SARAH BETH Stop: 04/06/17 07:41 Last Admin: 04/05/17 09:21 Dose: 100 mls/hr Vancomycin HCl 1 gm/ Sodium (Chloride) 250 mls @ 166.667 mls/hr IVPB DAILY SARAH BETH PRN Reason: Protocol Piperacillin Sod/Tazobactam (Sod 2.25 gm/ Sodium Chloride) 100 mls @ 100 mls/ hr IVPB Q8 SARAH BETH PRN Reason: Protocol Propofol (Diprivan) 1,000 mg in 100 mls @ 0.68 mls/hr IV .Q24H SARAH BETH; 5 MCG/KG/ MIN PRN Reason: Protocol Stop: 04/06/17 15:21 Last Titration: 04/05/17 16:08 Dose: 10 mcg/kg/min, 1.361 mls/hr Oseltamivir Phosphate (Tamiflu Susp) 30 mg PO DAILY SARAH BETH PRN Reason: Protocol Pantoprazole Sodium (Protonix Inj) 40 mg IVP DAILY SARAH BETH - Labs Labs: 04/05/17 06:28 04/05/17 06:28 - Constitutional Appears: In Acute Distress, Cachectic (on contracted posture.) - Head Exam Head Exam: ATRAUMATIC, NORMAL INSPECTION - Eye Exam Eye Exam: Normal appearance - ENT Exam ENT Exam: Mucous Membranes Moist Additional comments: Protruding tongue and some drooling. - Neck Exam Neck Exam: absent: Lymphadenopathy - Respiratory Exam Respiratory Exam: Rales, Wheezes, NORMAL BREATHING PATTERN. absent: Rhonchi - Skin Additional comments: Ecchymotic lesion on L hip area. Assessment and Plan - Assessment and Plan (Free Text) Assessment: 42 y/o M with a PMHx of cerebral palsy admitted for evaluation and management of hypernatremia and influenza A. Pt developed acute respiratory decompensation due to aspiration pneumonia. Plan: 1. Acute Respiratory Failure secondary to Aspiration Pneumonia. - Ventilator placed by Anesthesiology team. - Initiated on Vancomycin and Zosyn IV. - Pulmonology consulted - CXR and ABG ordered for next day. - CT of Chest without contrast. - Monitor ABG and CXR daily. - Blood Cx from admission showed No growth after 48 hours. - F/U CBC, CMP, new Blood Cx, Urine Cx and Sputum Cx, ABG, lactate levels, - Duoneb Q4H - G-tube feeding. 2. Influenza Type A - Continue Tamiflu - Continue Acetaminophen PRN for fever 3. Acute Kidney Injury - BUN/Creat: 36/1.8 - Pre-Renal, possibly ATN - Monitor I&O - Ortiz catheter to monitor input & output. - Consult to Nephrology. - Serum osm, urine osm. - CBC and CMP in the AM. - Renal Sonogram. 4. Thrombocytopenia - No anticoagulation. - Secondary to acute infection possibly. - F/U CBC. 5. Hypernatremia - Hypernatremia is most probably to poor PO intake and dehydration. - TOday's Serum Sodium 129-low. D5W stopped. IV normal saline 0.9% initiated at maintenance rate. - IV line access. 6. Hypercalcemia - serm Ca 5.4-low today. - Albumin 2.2-low - Corrected Ca+ 6.8 7. Cachexia - BMI 8.3 - Due to poor nutrition, intellectual challenge and cerebral palsy Hx. - G-tube feeding. - Nutrition referral - F/u Mg++ and Phosphorus. 8. Ecchymotic lesion - Bruise on L hip area, caused by chronic bed-bound condition. - Wound care asper nurse. - Re-position pt Q2H. 9. Mental retardation - Hx of Cerebral Palsy.
[2017-04-05] MEDS: Albuterol-Ipratrop 3 mg / 0.5 (3 ml) UD INH SCH ×2 (16:29→19:19)
[2017-04-05 16:38] LABS: ALBUMIN 2.2 g/dL (3.5-5.0); CALCIUM 5.4 mg/dL (8.4-10.2); MAGNESIUM 1.4 MG/DL (1.6-2.3)
[2017-04-05] MEDS ORDERED: Proshield Plus GEL TOP SCH (17:00)
[2017-04-05] MEDS ORDERED: Acetaminophen 325 MG/10.15 ML NG PRN (17:29)
[2017-04-05] MEDS ORDERED: Potassium Chloride 20 mEq/15 ml LIQ UD NG ONE (17:41)
[2017-04-05] MEDS ORDERED: Magnesium Sulfate 1 gm in D5W 1 GM/100 ML BAG IVPB ONE ×2 (17:42→21:03)
[2017-04-05] MEDS ORDERED: Acetaminophen 650mg/20.3ml solution UD NG PRN ×2 (17:45→21:03)
--- NOTE | 2017-04-05 17:51 | CP.CCUPN ---
CCU Subjective - Physician Review Subjective (Free Text): 04/05/17 17:49 42M transferred to ICU for resp distress, hypoxemia, tachypnea, with desaturation to 82% on 100% NRBM due to suspected massive aspiration after Hospitalist team noted increased coughing episodes. He was initially admitted to Telemetry for +influenza viral syndrome, and hypernatremia. Given present body habitus, agitation and inability to follow directions due to h/o mental retardation: unable to provide further oxygen supplementation with BiPAP nor HFNC. Discussed with family including patients mother using Dr. Trimble as the home hospice rn regarding need for MV support. Mother agreed and patient intubated with Anesthesiologist guidance and assistance. After ETT placement, large expulsion f brownish fluid noted coming from ETT. ETT was confirmed to be in the lung with satisfactory BS bilaterally. Other vitals and I/O's reviewed. ROS: No other pertinent negs or positives on 10+ system review obtainable due to mental retardation. Allergies: NKDA Home Meds: Vistaril PMSFH: Severe scoliosis, contracted extremities, All other Nursing and physician documentation reviewed to date; no new pertinent info noted relevant to current medical problems. CXR: post intubation shows improved aeration of bilat lung mehta with new interstitial changes seen in RUL and R hilar regions. ETT position shows tip high near the level of the clavicular heads. ( my interp.) IMPRESSION / MAJOR PROBLEMS NOW: 1. Acute Hypoxemic Resp Failure 2 Aspiration Pneumonia 2. Chronic Disease Anemia 3. Acute on Chronic Thrombocytopenia 4. S/p Hypernatremia 5. Hypokalemia 6. Hypocalcemia 7. Acute Transaminasemia with normal AlkPhos, r/o Shock Liver. PLAN: 1. Panculture, empiric abx coverage 2. Check repeat ABG on current MV settings of 100% oxygen, TV 200ml, AC 12. Cautiously re-position ETT 2 cm lower. 3. NSS IV hydration for now. 4. K and Mag supplementation 5. Check Ionized Calcium level, no muscular twitching nor arrhythmias noted. 6. Serial Lactates till normalized. Watch platelet counts, r/o DIC, check Fibrinogen levels, repeat PT/PTT. 7. See other inputted orders. Time spent with this patient did not overlap with any other provider's medical or critical care time. Additionally the code selected for the services rendered in this note includes the time spent: talking to the patients family, associated physicians and reviewing hospital data/results not listed here which extended to a total of 50 minutes. CCU Objective - Vital Signs / Intake & Output Vital Signs (Last 4 hours): Vital Signs Temp Pulse Resp BP Pulse Ox 04/05/17 17:45 102 F H 04/05/17 16:45 102.4 F H 111 H 46 H 127/74 95 04/05/17 15:28 106 H 50 H 80/59 L 98 04/05/17 15:05 102.4 F H 91 H 48 H 80/47 L 98 Intake and Output (Last 8hrs): Intake & Output 04/05/17 04/05/17 04/05/17 06:59 14:59 22:59 Intake Total 800 600 0 Balance 800 600 0 Intake: IV 800 300 0 Oral 300 - Physical Exam Physical Exam Limitations: Positive for: Altered Mental Status Head: Positive for: Normocephalic Pupils: Positive for: PERRL Extroacular Muscles: Positive for: EOMI Conjunctiva: Positive for: Normal Mouth: Positive for: Moist Mucous Membranes. Negative for: Drooling, Normal Tounge (large, but non-obstructing) Pharnyx: Positive for: Other (not visualizable) Respiratory/Chest: Positive for: Decreased Breath Sounds. Negative for: Accessory Muscle Use, Wheezes Cardiovascular: Positive for: Regular Rate and Rhythm, Tachycardic Abdomen: Positive for: Normal Bowel Sounds. Negative for: Tenderness, Distention, Mass/Organomegaly Upper Extremity: Positive for: Other (flexion contractures) Lower Extremity: Positive for: Other (flexion contractures) Neurological: Positive for: Other (awake and not following commands, nonverbal) Psychiatric: Positive for: Agitated - Medications Active Medications: Active Medications Generic Name Dose Route Start Last Admin Trade Name Freq PRN Reason Stop Dose Admin Acetaminophen 650 mg 04/04/17 17:10 04/05/17 13:13 Tylenol 650 Mg Supp MI 650 mg Q6 PRN Administration Fever >100.4 F Acetaminophen 325 mg 04/05/17 17:45 04/05/17 17:45 Tylenol 650mg/20.3ml Solution Ud NG 325 mg Q6 PRN Administration Fever >100.4 F Albuterol/Ipratropium 3 ml 04/05/17 16:00 04/05/17 16:29 Duoneb 3 Mg/0.5 Mg (3 Ml) Ud INH 3 ml RQ4 SARAH BETH Administration Dimethicone 1 applic 04/05/17 17:00 Proshield Plus Skin Protectant TOP Q8 SARAH BETH Sodium Chloride 1,000 mls @ 100 mls/hr 04/05/17 07:45 04/05/17 09:21 Sodium Chloride 0.9% IV 04/06/17 07:41 100 mls/hr .Q10H SARAH BETH Administration Vancomycin HCl 1 gm/ Sodium 250 mls @ 166.667 mls/hr 04/05/17 14:15 04/05/17 17:22 Chloride IVPB 166.667 mls/hr DAILY SARAH BETH Administration Protocol Piperacillin Sod/Tazobactam 100 mls @ 100 mls/hr 04/05/17 17:00 04/05/17 17: 20 Sod 2.25 gm/ Sodium Chloride IVPB 100 mls/hr Q8 SARAH BETH Administration Protocol Propofol 1,000 mg in 100 mls @ 0.68 mls/hr 04/05/17 15:30 04/05/17 17:15 Diprivan IV 04/06/17 15:21 15 mcg/kg/min .Q24H SARAH BETH 2.041 mls/hr Protocol Titration 5 MCG/KG/MIN Potassium Chloride 10 meq/ 55 mls @ 55 mls/hr 04/05/17 18:00 Sodium Chloride IV 04/05/17 23:59 Q1 SARAH BETH Magnesium Sulfate/Dextrose 1 gm in 100 mls @ 100 mls/hr 04/05/17 17:42 Magnesium Sulfate 1 Gm/100 Ml D5w IVPB 04/05/17 18:41 ONCE ONE 1 GM/HR Oseltamivir Phosphate 30 mg 04/06/17 09:00 Tamiflu Susp PO DAILY SARAH BETH Protocol Pantoprazole Sodium 40 mg 04/05/17 16:00 04/05/17 17:19 Protonix Inj IVP 40 mg DAILY SARAH BETH Administration - Patient Studies Lab Studies: Microbiology Studies 04/03/17 17:00 Blood Culture - Preliminary Blood NO GROWTH AFTER 48 HOURS Lab Studies 04/05/17 04/05/17 04/05/17 Range/Units 15:54 15:54 13:53 WBC (4.8-10.8) K/uL RBC (4.40-5.90) Mil/uL Hgb (12.0-18.0) g/dL Hct (35.0-51.0) % MCV (80.0-94.0) fl MCH (27.0-31.0) pg MCHC (33.0-37.0) g/dL RDW (11.5-14.5) % Plt Count (130-400) K/uL pCO2 29 L (35-45) mm/Hg pO2 70 L (80-100) mm/Hg HCO3 20.4 L (21-28) mmol/L ABG pH 7.40 (7.35-7.45) ABG Total CO2 18.9 L (22-28) mmol/L ABG O2 Saturation 97.0 (95-98) % ABG O2 Content 14.9 L (15-23) ML/dL ABG Base Excess -5.7 L (-2.0-3.0) mmol/L ABG Hemoglobin 11.2 L (11.7-17.4) g/dL ABG Carboxyhemoglobin 1.2 (0.5-1.5) % POC ABG HHb (Measured) 2.9 (0.0-5.0) % ABG Methemoglobin 1.4 (0.0-3.0) % ABG O2 Capacity 15.4 L (16-24) mL/dL Lino Test Yes A-a O2 Difference 607.0 mm/Hg Hgb O2 Saturation 94.5 L (95.0-98.0) % Vent Mode Nrm FiO2 100.0 % Blood Gas Comments Nrm 100 Crit Value Called To Bailee randle r.n. Crit Value Called By Maria Luisa Crit Value Read Back Y Blood Gas Notified Time 1359 Sodium 138 (132-148) mmol/l Potassium 2.8 L (3.6-5.0) MMOL/L Chloride 106 (98-107) mmol/L Carbon Dioxide 20 L (22-30) mmol/L Anion Gap 15 (10-20) BUN 36 H (9-20) mg/dl Creatinine 1.8 H (0.8-1.5) mg/dl Est GFR ( Amer) 50 Est GFR (Non-Af Amer) 41 Random Glucose 68 L (75-110) mg/dL Lactic Acid 3.0 H (0.7-2.1) MMOL/L Calcium 5.4 L* (8.4-10.2) mg/dL Phosphorus 3.3 (2.5-4.5) mg/dl Magnesium 1.4 L (1.6-2.3) MG/DL Total Bilirubin 0.6 (0.2-1.3) mg/dl AST 320 H D (17-59) U/L ALT 208 H D (21-72) U/L Alkaline Phosphatase 43 (38-126) U/L Total Protein 4.4 L (6.3-8.2) G/DL Albumin 2.2 L (3.5-5.0) g/dL Globulin 2.2 (2.2-3.9) gm/dL Albumin/Globulin Ratio 1.0 (1.0-2.1) 04/05/17 04/05/17 04/05/17 Range/Units 08:47 06:28 06:28 WBC 2.1 L D (4.8-10.8) K/uL RBC 4.05 L (4.40-5.90) Mil/uL Hgb 10.2 L D (12.0-18.0) g/dL Hct 32.6 L (35.0-51.0) % MCV 80.5 (80.0-94.0) fl MCH 25.1 L (27.0-31.0) pg MCHC 31.2 L (33.0-37.0) g/dL RDW 15.5 H (11.5-14.5) % Plt Count 33 L D (130-400) K/uL pCO2 (35-45) mm/Hg pO2 (80-100) mm/Hg HCO3 (21-28) mmol/L ABG pH (7.35-7.45) ABG Total CO2 (22-28) mmol/L ABG O2 Saturation (95-98) % ABG O2 Content (15-23) ML/dL ABG Base Excess (-2.0-3.0) mmol/L ABG Hemoglobin (11.7-17.4) g/dL ABG Carboxyhemoglobin (0.5-1.5) % POC ABG HHb (Measured) (0.0-5.0) % ABG Methemoglobin (0.0-3.0) % ABG O2 Capacity (16-24) mL/dL Lino Test A-a O2 Difference mm/Hg Hgb O2 Saturation (95.0-98.0) % Vent Mode FiO2 % Blood Gas Comments Crit Value Called To Crit Value Called By Crit Value Read Back Blood Gas Notified Time Sodium 129 L (132-148) mmol/l Potassium 3.7 (3.6-5.0) MMOL/L Chloride 94 L (98-107) mmol/L Carbon Dioxide 23 (22-30) mmol/L Anion Gap 16 (10-20) BUN 34 H (9-20) mg/dl Creatinine 2.1 H (0.8-1.5) mg/dl Est GFR ( Amer) 42 Est GFR (Non-Af Amer) 35 Random Glucose 353 H (75-110) mg/dL Lactic Acid (0.7-2.1) MMOL/L Calcium 6.7 L (8.4-10.2) mg/dL Phosphorus (2.5-4.5) mg/dl Magnesium (1.6-2.3) MG/DL Total Bilirubin (0.2-1.3) mg/dl AST (17-59) U/L ALT (21-72) U/L Alkaline Phosphatase (38-126) U/L Total Protein (6.3-8.2) G/DL Albumin 2.6 L D (3.5-5.0) g/dL Globulin (2.2-3.9) gm/dL Albumin/Globulin Ratio (1.0-2.1) Laboratory Results - last 24 hr 04/05/17 04/05/17 04/05/17 06:28 06:28 08:47 WBC 2.1 L D RBC 4.05 L Hgb 10.2 L D Hct 32.6 L MCV 80.5 MCH 25.1 L MCHC 31.2 L RDW 15.5 H Plt Count 33 L D pCO2 pO2 HCO3 ABG pH ABG Total CO2 ABG O2 Saturation ABG O2 Content ABG Base Excess ABG Hemoglobin ABG Carboxyhemoglobin POC ABG HHb (Measured) ABG Methemoglobin ABG O2 Capacity Lino Test A-a O2 Difference Hgb O2 Saturation Vent Mode FiO2 Blood Gas Comments Crit Value Called To Crit Value Called By Crit Value Read Back Blood Gas Notified Time Sodium 129 L Potassium 3.7 Chloride 94 L Carbon Dioxide 23 Anion Gap 16 BUN 34 H Creatinine 2.1 H Est GFR ( Amer) 42 Est GFR (Non-Af Amer) 35 Random Glucose 353 H Lactic Acid Calcium 6.7 L Phosphorus Magnesium Total Bilirubin AST ALT Alkaline Phosphatase Total Protein Albumin 2.6 L D Globulin Albumin/Globulin Ratio 04/05/17 04/05/17 04/05/17 13:53 15:54 15:54 WBC RBC Hgb Hct MCV MCH MCHC RDW Plt Count pCO2 29 L pO2 70 L HCO3 20.4 L ABG pH 7.40 ABG Total CO2 18.9 L ABG O2 Saturation 97.0 ABG O2 Content 14.9 L ABG Base Excess -5.7 L ABG Hemoglobin 11.2 L ABG Carboxyhemoglobin 1.2 POC ABG HHb (Measured) 2.9 ABG Methemoglobin 1.4 ABG O2 Capacity 15.4 L Lino Test Yes A-a O2 Difference 607.0 Hgb O2 Saturation 94.5 L Vent Mode Nrm FiO2 100.0 Blood Gas Comments Nrm 100 Crit Value Called To Bailee randle r.n. Crit Value Called By Maria Luisa Crit Value Read Back Y Blood Gas Notified Time 1359 Sodium 138 Potassium 2.8 L Chloride 106 Carbon Dioxide 20 L Anion Gap 15 BUN 36 H Creatinine 1.8 H Est GFR ( Amer) 50 Est GFR (Non-Af Amer) 41 Random Glucose 68 L Lactic Acid 3.0 H Calcium 5.4 L* Phosphorus 3.3 Magnesium 1.4 L Total Bilirubin 0.6 AST 320 H D ALT 208 H D Alkaline Phosphatase 43 Total Protein 4.4 L Albumin 2.2 L Globulin 2.2 Albumin/Globulin Ratio 1.0 Radiology Interpretations (Free Text): see above Review of Systems - Review of Systems Systems not reviewed;Unavailable: Altered Mental Status Critical Care Progress Note - Ventilator Checklist Head of Bed 30 Degrees: Yes Daily Sedation Vacation: No Daily Assessment of Readiness to Wean: No Daily Spontaneous Breathing Trial: No PUD Prophalyxis: Yes DVT Prophylaxis: Yes Oral Care with Chlorhexidine Gluconate {CHG}: Yes - Vent Settings MODE:: ASSIST CONTROL TIDAL VOLUME:: 200 RESP RATE:: 12 FIO2:: 100 - Extremities/Vascular Does the Patient have a Central Venous Catheter?: Yes Does the Patient need a Central Venous Catheter?: Yes Does the Patient have a Ortiz Catheter?: No Does the Patient need a Ortiz Catheter?: Yes Catheter Insertion Criteria: Need for accurate measurement of output in critically ill patient - Restraints Justification for Restraints: High risk for self extubation - Prophylaxis GI Prophylaxis GI: PPI - Prophylaxis DVT Prophylaxis DVT: SCDs
[2017-04-05] MEDS ORDERED: Magnesium Sulfate 1 GM in Dextrose 5% In Water 50 ML IV ONE ×2 (18:15→21:03)
[2017-04-05 20:15] LABS: ABG ALLEN TEST YES; ARTERIAL BLOOD GAS HCO3 19.6 mmol/L (21-28); ARTERIAL BLOOD GAS O2 SAT 97.9 % (95-98); ARTERIAL BLOOD GAS PCO2 31 mm/Hg (35-45); ARTERIAL BLOOD GAS PH 7.36 (7.35-7.45); ARTERIAL BLOOD GAS PO2 77 mm/Hg (80-100); ARTERIAL BLOOD GAS TCO2 18.5 mmol/L (22-28)
[2017-04-06] MEDS: Albuterol-Ipratrop 3 mg / 0.5 (3 ml) UD INH SCH ×2 (00:34→00:37)
[2017-04-06] MEDS ORDERED: Proshield Plus GEL TOP SCH (01:00)
[2017-04-06 02:17] VITALS: TEMP 102.5
--- NOTE | 2017-04-06 04:06 | CP.PCM.PN ---
Subjective - Date & Time of Evaluation Date of Evaluation: 04/06/17 Time of Evaluation: 04:06 - Subjective Subjective: CODE NOTE Code called after this patient became bradycardic and went into asystole on the road mechanic ventilator. full ACLS protocol was instituted with chest compressions and positive pressure ventilation with bagvalve ET tube. Epinephrine was given according to protocol. the Patient remained in asystole through out the attempt at resuscitation. after it was deemed futile to continue, the code was called. The patient was Pronounced at 3:41AM The family was present. The certificate was Written. Cause of 1. Acute Hypoxic Respiratory failure 2. aspiration pneumonia 3. Influenza A infection. Miguel Anna MD Objective - Vital Signs/Intake and Output Vital Signs (last 24 hours): Temp Pulse Resp BP Pulse Ox 102.5 F H 144 H 43 H 62/50 L 100 04/06/17 02:16 04/06/17 01:36 04/05/17 18:00 04/06/17 01:36 04/05/17 18:00 Intake and Output: 04/05/17 04/06/17 18:59 06:59 Intake Total 600 6 Balance 600 6 - Medications Medications: Current Medications Acetaminophen (Tylenol 650 Mg Supp) 650 mg AR Q6 PRN PRN Reason: Fever >100.4 F Acetaminophen (Tylenol 650mg/20.3ml Solution Ud) 325 mg NG Q6 PRN PRN Reason: Fever >100.4 F Albuterol/Ipratropium (Duoneb 3 Mg/0.5 Mg (3 Ml) Ud) 3 ml INH RQ4 SARAH BETH Last Admin: 04/06/17 00:37 Dose: Not Given Dimethicone (Proshield Plus Skin Protectant) 1 applic TOP Q8 SARAH BETH Last Admin: 04/06/17 01:28 Dose: 1 applic Propofol (Diprivan) 1,000 mg in 100 mls @ 0.68 mls/hr IV .Q24H SARAH BETH; 5 MCG/KG/ MIN PRN Reason: Protocol Stop: 04/06/17 15:21 Last Admin: 04/05/17 21:42 Dose: Not Given Sodium Chloride (Sodium Chloride 0.9%) 1,000 mls @ 100 mls/hr IV .Q10H SARAH BETH Stop: 04/06/17 07:41 Last Admin: 04/05/17 21:22 Dose: 100 mls/hr Vancomycin HCl 1 gm/ Sodium (Chloride) 250 mls @ 166.667 mls/hr IVPB DAILY SARAH BETH PRN Reason: Protocol Piperacillin Sod/Tazobactam (Sod 2.25 gm/ Sodium Chloride) 100 mls @ 100 mls/ hr IVPB Q8 SARAH BETH PRN Reason: Protocol Last Admin: 04/06/17 01:17 Dose: 100 mls/hr Sodium Chloride (Sodium Chloride 0.9%) 600 mls @ 999 mls/hr IV .Q37M SARAH BETH Stop: 04/06/17 21:00 Last Admin: 04/05/17 20:00 Dose: 999 mls/hr Phenylephrine HCl 10 mg/ (Sodium Chloride) 251 mls @ 30.12 mls/hr IV .Q8H20M SARAH BETH; 20 MCG/MIN PRN Reason: Protocol Last Titration: 04/06/17 02:46 Dose: 80 mcg/min, 120.48 mls/hr Ibuprofen (Motrin Oral Susp) 400 mg PO Q6 PRN PRN Reason: Fever >100.4 F Last Admin: 04/06/17 02:16 Dose: 400 mg Oseltamivir Phosphate (Tamiflu Susp) 30 mg PO DAILY SARAH BETH PRN Reason: Protocol Pantoprazole Sodium (Protonix Inj) 40 mg IVP DAILY SARAH BETH - Labs Labs: 04/05/17 06:28 04/05/17 15:54
--- NOTE | 2017-04-06 04:07 | CP.PCM.PRO ---
Pronouncement of Note - Clinical Findings Physical Exam: No Response Verbal/Painful Stimuli, Absent Peripheral Pulses{ Carotid & Femoral}, Absent Heart & Breath Sounds, No Pupillary Light Reflex, No Corneal Reflex, Pupils Fixed & Dilated, Absence of Vital Signs - Pronouncement Time Time of Pronouncement of : 03:41 - Notifications Pronouncement Notifications: Family Notified, Atending Notified Insulating Machine Operator Notified: No - Autopsy Autopsy Requested: No - [place] [id number] Additional Comments: The Patient was coded
[2017-04-06 06:43] VITALS: O2SAT 96
[2017-04-06 06:44] VITALS: BP 107/40; PULSE 140; RESP 12
[2017-04-06] MEDS ORDERED: Oseltamivir 6 MG/ML PO SCH ×2 (09:00)
--- NOTE | 2017-04-06 15:43 | CP.PCM.DIS ---
Provider - Provider Date of Admission: 04/03/17 18:22 Attending physician: Juan C Carter MD Primary care physician: Juan C Carter MD Consults: Calos Vicente MD Pulmonogist Time Spent in preparation of Discharge (in minutes): 35 Diagnosis - Discharge Diagnosis (1) Acute and chronic respiratory failure with hypoxia Status: Acute (2) Aspiration pneumonia Status: Acute Hospital Course - Lab Results Lab Results: Micro Results 04/05/17 19:03 Blood-Venous Blood Culture - Preliminary Gram Negative Yanick 04/05/17 19:03 Blood-Venous Gram Stain - Final 04/03/17 07:34 Naris MRSA Culture (Admit) - Final MRSA NOT DETECTED 04/03/17 17:00 Blood Blood Culture - Preliminary NO GROWTH AFTER 48 HOURS Most Recent Lab Values WBC 2.1 K/uL (4.8-10.8) L D 04/05/17 06:28 RBC 4.05 Mil/uL (4.40-5.90) L 04/05/17 06:28 Hgb 10.2 g/dL (12.0-18.0) L D 04/05/17 06:28 Hct 32.6 % (35.0-51.0) L 04/05/17 06:28 MCV 80.5 fl (80.0-94.0) 04/05/17 06:28 MCH 25.1 pg (27.0-31.0) L 04/05/17 06:28 MCHC 31.2 g/dL (33.0-37.0) L 04/05/17 06:28 RDW 15.5 % (11.5-14.5) H 04/05/17 06:28 Plt Count 33 K/uL (130-400) L D 04/05/17 06:28 MPV 12.7 fl (7.2-11.7) H 04/04/17 05:01 Neut % (Auto) 73.6 % (50.0-75.0) 04/04/17 05:01 Lymph % (Auto) 21.0 % (20.0-40.0) 04/04/17 05:01 [place] % (Auto) 5.0 % (0.0-10.0) 04/04/17 05:01 Eos % (Auto) 0.0 % (0.0-4.0) 04/04/17 05:01 Baso % (Auto) 0.4 % (0.0-2.0) 04/04/17 05:01 Neut # (Auto) 5.2 K/uL (1.8-7.0) 04/04/17 05:01 Lymph # (Auto) 1.5 K/uL (1.0-4.3) 04/04/17 05:01 [place] # (Auto) 0.3 K/uL (0.0-0.8) 04/04/17 05:01 Eos # (Auto) 0.0 K/uL (0.0-0.7) 04/04/17 05:01 Baso # (Auto) 0.0 K/uL (0.0-0.2) 04/04/17 05:01 pCO2 31 mm/Hg (35-45) L 04/05/17 20:09 pO2 77 mm/Hg (80-100) L 04/05/17 20:09 HCO3 19.6 mmol/L (21-28) L 04/05/17 20:09 ABG pH 7.36 (7.35-7.45) 04/05/17 20:09 ABG Total CO2 18.5 mmol/L (22-28) L 04/05/17 20:09 ABG O2 Saturation 97.9 % (95-98) 04/05/17 20:09 ABG O2 Content 14.9 ML/dL (15-23) L 04/05/17 13:53 ABG Base Excess -6.8 mmol/L (-2.0-3.0) L 04/05/17 20:09 ABG Hemoglobin 11.2 g/dL (11.7-17.4) L 04/05/17 13:53 ABG Carboxyhemoglobin 1.2 % (0.5-1.5) 04/05/17 13:53 POC ABG HHb (Measured) 2.9 % (0.0-5.0) 04/05/17 13:53 ABG Methemoglobin 1.4 % (0.0-3.0) 04/05/17 13:53 ABG O2 Capacity 15.4 mL/dL (16-24) L 04/05/17 13:53 Lino Test Yes 04/05/17 20:09 ABG Potassium 3.5 mmol/L (3.6-5.2) L 04/05/17 20:09 VBG pH 7.45 (7.32-7.43) H 04/03/17 16:34 VBG pCO2 41 mmHg (40-60) 04/03/17 16:34 VBG HCO3 27.5 mmol/L 04/03/17 16:34 VBG Total CO2 29.8 mmol/L (22-28) H 04/03/17 16:34 VBG O2 Sat (Calc) 80.1 % (40-65) H 04/03/17 16:34 VBG Base Excess 4.1 mmol/L (0.0-2.0) H 04/03/17 16:34 VBG Potassium 3.3 mmol/L (3.6-5.2) L 04/03/17 16:34 A-a O2 Difference 597.0 mm/Hg 04/05/17 20:09 Hgb O2 Saturation 94.5 % (95.0-98.0) L 04/05/17 13:53 Sodium 133.0 mmol/L (132-148) 04/05/17 20:09 Chloride 101.0 mmol/L (98-107) 04/05/17 20:09 Glucose 67 mg/dL (75-110) L 04/05/17 20:09 Lactate 2.9 mmol/L (0.7-2.1) H 04/05/17 20:09 Vent Mode Prvc/ac 04/05/17 20:09 Mechanical Rate 12 04/05/17 20:09 FiO2 100.0 % 04/05/17 20:09 Tidal Volume 200 04/05/17 20:09 Blood Gas Comments Lactate 2.9 04/05/17 20:09 Crit Value Called To harjeet Hutchinson 04/05/17 20:09 Crit Value Called By 203 04/05/17 20: Crit Value Read Back Y 04/05/17 20:09 Blood Gas Notified Time 201404/05/17 20:09 Sodium 138 mmol/l (132-148) 04/05/17 15:54 Potassium 2.8 MMOL/L (3.6-5.0) L 04/05/17 15:54 Chloride 106 mmol/L (98-107) 04/05/17 15:54 Carbon Dioxide 20 mmol/L (22-30) L 04/05/17 15:54 Anion Gap 15 (10-20) 04/05/17 15:54 BUN 36 mg/dl (9-20) H 04/05/17 15:54 Creatinine 1.8 mg/dl (0.8-1.5) H 04/05/17 15:54 Est GFR ( Amer) 50 04/05/17 15:54 Est GFR (Non-Af Amer) 41 04/05/17 15:54 Random Glucose 68 mg/dL (75-110) L 04/05/17 15:54 Lactic Acid 3.0 MMOL/L (0.7-2.1) H 04/05/17 15:54 Calcium 5.4 mg/dL (8.4-10.2) L* 04/05/17 15:54 Phosphorus 3.3 mg/dl (2.5-4.5) 04/05/17 15:54 Magnesium 1.4 MG/DL (1.6-2.3) L 04/05/17 15:54 Total Bilirubin 0.6 mg/dl (0.2-1.3) 04/05/17 15:54 AST 320 U/L (17-59) H D 04/05/17 15:54 ALT 208 U/L (21-72) H D 04/05/17 15:54 Alkaline Phosphatase 43 U/L (38-126) 04/05/17 15:54 Total Protein 4.4 G/DL (6.3-8.2) L 04/05/17 15:54 Albumin 2.2 g/dL (3.5-5.0) L 04/05/17 15:54 Globulin 2.2 gm/dL (2.2-3.9) 04/05/17 15:54 Albumin/Globulin Ratio 1.0 (1.0-2.1) 04/05/17 15:54 Arterial Blood Potassium 3.5 mmol/L (3.6-5.2) L 04/05/17 20:09 Venous Blood Potassium 3.3 mmol/L (3.6-5.2) L 04/03/17 16:34 Urine Osmolality 369 mosm/kg (300-1000) 04/05/17 23:17 Ur Random Creatinine 91.3 mg/dL 04/05/17 23:17 Ur Random Sodium 42 meq/L 04/05/17 23:17 Ur Random Potassium 38.5 mmol/L 04/05/17 23:17 Influenza Typ A,B (EIA) Pos for influenza a (NEGATIVE) H 04/03/17 17:00 - Hospital Course Hospital Course: 42 years old Mentally retarded bed ridden patient was admitted to telemetry unit on 04/03/17 and diagnosed with Influenza A virus infection and Hypernatremia presenting fever.He developed a severe cough with choking on and developed a severe hypoxemia whereby he had to be intubated after being transferred to the ICU. On intubation , the material suctioned indicated that the patient had aspirated. On the AM of 04/06/17 the patient went into Asystole and was coded. He remained in asystole through out the Code and was pronounced at 3:41AM. the family was present Cause of 1. Acute Hypoxic Respiratory failure 2. aspiration pneumonia 3. Influenza A infection. Miguel Anna MD - Date & Time of H&P Date of H&P: 04/03/17 Time of H&P: 19:42 Discharge Exam - Head Exam Head Exam: ATRAUMATIC, NORMAL INSPECTION Discharge Plan - Follow Up Plan Condition: FAIR Disposition: WITH WITHOUT AUTOPSY Instructions: Dehydration (DC)
== END 2017-04-06 03:41 | DRG 586 ==
LOC: H.ER 15:52 → H.ERHOLD 18:22 → H.ICU/CCU 20:35 → H.TEL 04-05 12:03 → H.ICU/CCU 04-05 15:03
PROC: 02HV33Z Insertion of Infusion Device into Superior Vena Cava, Percutaneous Approach (ICD-10-PCS; principal; 2017-04-05)
PROC: 5A1935Z Respiratory Ventilation, Less than 24 Consecutive Hours (ICD-10-PCS; 2017-04-05)
PROC: 0BH17EZ Insertion of Endotracheal Airway into Trachea, Via Natural or Artificial Opening (ICD-10-PCS; 2017-04-05)
DX: J10.1 Influenza due to other identified influenza virus with other respiratory manifestations (principal); N17.9 Acute kidney failure, unspecified; J96.01 Acute respiratory failure with hypoxia; R64 Cachexia; E87.0 Hyperosmolality and hypernatremia; D69.6 Thrombocytopenia, unspecified; E83.51 Hypocalcemia; I46.9 Cardiac arrest, cause unspecified; E87.6 Hypokalemia; J69.0 Pneumonitis due to inhalation of food and vomit; M41.9 Scoliosis, unspecified; E86.0 Dehydration; G80.9 Cerebral palsy, unspecified; F79 Unspecified intellectual disabilities; Z74.01 Bed confinement status; Z68.1 Body mass index [BMI] 19.9 or less, adult; D63.8 Anemia in other chronic diseases classified elsewhere; R74.0 Nonspecific elevation of levels of transaminase and lactic acid dehydrogenase [LDH]; Z78.1 Physical restraint status